=== PATIENT | female | born 1970 | race Caucasian/White ===

== ENCOUNTER 2018-01-21 15:27 | Emergency (ER) | payer BC ==
[~2018-01-21] VITALS: Ht 170.2 cm; Wt 62.1 kg
[2018-01-21] MEDS ORDERED: HYDROMORPHONE 1 MG/1 ML DISP.SYRIN IM ONE (16:15)
[2018-01-21] MEDS ORDERED: ONDANSETRON 4 MG/2 ML VIAL IM ONE (16:15)
[2018-01-21] MEDS ORDERED: KETOROLAC TROMETHAMINE 60 MG INJ IM ONE ×2 (16:21→16:30)
[2018-01-21] MEDS ORDERED: ONDANSETRON 4 MG/2 ML VIAL ONE (16:22)
--- NOTE | 2018-01-21 16:39 | NUR ---
PT WAS EVALUATED BY DR HERRERA. PT WAS D/C TO HOME. D/C INSTRUCTIONS GIVEN TO THE PT.
[2018-01-21 16:40] VITALS: BP 129/68
== END 2018-01-21 16:41 | disposition home or self-care (01) ==
LOC: ER 15:29
DX: M54.5 Low back pain (principal)
CPT/HCPCS: A4663; J1885; J2405